=== PATIENT | male | born 1980 | race Caucasian/White ===

== ENCOUNTER 2021-10-12 08:42 | Emergency (ER) | payer OTHER ==
[2021-10-12] MEDS ORDERED: CYCLOBENZAPRINE10 MG PO (12:23)
== END 2021-10-12 12:41 | disposition home or self-care (01) ==
LOC: ER1 08:42
DX: S09.90XA Unspecified injury of head, initial encounter (principal); S16.1XXA Strain of muscle, fascia and tendon at neck level, initial encounter; S46.912A Strain of unspecified muscle, fascia and tendon at shoulder and upper arm level, left arm, initial encounter; S86.912A Strain of unspecified muscle(s) and tendon(s) at lower leg level, left leg, initial encounter; S29.012A Strain of muscle and tendon of back wall of thorax, initial encounter; V49.40XA Driver injured in collision with unspecified motor vehicles in traffic accident, initial encounter; Y92.410 Unspecified street and highway as the place of occurrence of the external cause
CPT/HCPCS: 70450; 71046; 72125; 72128; 72131; 73030; 73562; 99284